=== PATIENT | male | born 1950 | race Caucasian/White ===

== ENCOUNTER 2018-03-19 12:47 | Outpatient (CLI) | payer OTHER ==
[~2018-03-19 12:47] MED LIST: Gadobenate Dimeglumine 529 MG/1 ML (20ML VIAL) ONE
--- NOTE | 2018-03-19 16:06 | MRI ---
MRI OF THE PROSTATE WITHOUT AND WITH CONTRAST 03/19/18 COMPARISON: None. HISTORY: Prostate cancer. Patient had biopsy ten months ago. TECHNIQUE: Multiplanar and multisequence MRI images were obtained in the prostate without and with IV contrast. This examination was evaluated on a [employer] workstation. FINDINGS: There is mild hypertrophy of the central gland consistent with BPH. No low T2 signal lesion is seen i n the peripheral zone of the prostate or in the central gland of the prostate. No low signal is seen on the ADC map and no restricted diffusion is seen within the prostate on this examination. Evaluatio n of the posterior aspect of the prostate is limited secondary to susceptibility artifact from air in the patient's rectum. The seminal vesicles are intact without focal abnormality. No pelvic adenopathy is seen. No suspiciou s osseous lesions are identified. 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 This exam was reviewed with Dr. Witt who agrees with the findings and impression. IMPRESSION: PIRADS category 2 - low likelihood that a clinically significant cancer is present. POS: JORI
== END 2018-03-19 12:48 | disposition home or self-care (01) ==
LOC: TBSIIMAG 12:47
DX: C61 Malignant neoplasm of prostate (principal)
CPT/HCPCS: 72197; A9577